=== PATIENT | female | born 1945 | race Caucasian/White ===

== ENCOUNTER 2017-01-12 13:38 | Outpatient (CLI) | payer MEDICARE, OTHER | END 2017-01-12 13:39 | disposition home or self-care (01) | DX: K51.50 Left sided colitis without complications (principal) ==

== ENCOUNTER 2017-05-24 11:25 | Outpatient (CLI) | payer MEDICARE, OTHER ==
[2017-05-24 19:39] LABS: BASOPHILS # (AUTO) 0.1 10^3/uL (0.0-0.1); BASOPHILS % (AUTO) 0.7 %; EOSINOPHILS # (AUTO) 0.3 10^3/uL (0.0-0.7); EOSINOPHILS % (AUTO) 2.8 %; HCT - HEMATOCRIT 41.5 % (37.0-47.0); HGB - HEMOGLOBIN 13.7 g/dL (12.0-16.0); LYMPHOCYTES # (AUTO) 1.4 10^3/uL (1.5-3.5); LYMPHOCYTES % (AUTO) 14.2 %; MEAN CORPUSCULAR HEMOGLOBIN 31.7 pg (27.0-31.0); MEAN CORPUSCULAR VOLUME 96.2 fL (81.0-99.0); MEAN PLATELET VOLUME 8.1 fL (7.9-10.8); MONOCYTES # (AUTO) 0.5 10^3/uL (0.0-1.0); MONOCYTES % (AUTO) 5.2 %; NEUTROPHILS # (AUTO) 7.7 10^3/uL (1.5-6.6); NEUTROPHILS % (AUTO) 77.1 %; NUCLEATED RED BLOOD CELLS AUTO 0.1 /100WBC; RED BLOOD COUNT 4.31 10^6/uL (4.20-5.40); RED CELL DISTRIBUTION WIDTH 15.2 % (12.0-15.0)
[2017-05-24 20:15] LABS: BILIRUBIN,DIRECT 0.1 mg/dL (0.1-0.5); BILIRUBIN,TOTAL 0.4 mg/dL (0.2-1.0); CREATININE 0.6 mg/dL (0.4-1.0); TOTAL PROTEIN 7.1 g/dL (6.7-8.2)
== END 2017-05-24 11:26 ==
LOC: LAB.WCP 11:25
PROVIDERS: ATTEND Internal Medicine Gastroenterology
DX: K51.50 Left sided colitis without complications (principal)
CPT/HCPCS: 36415; 80076; 82565; 84520; 85025

== ENCOUNTER 2017-11-18 08:00 | Outpatient (CLI) | payer MEDICARE, OTHER ==
[2017-11-18 18:42] LABS: BASOPHILS # (AUTO) 0.1 10^3/uL (0.0-0.1); BASOPHILS % (AUTO) 1.1 %; EOSINOPHILS # (AUTO) 0.3 10^3/uL (0.0-0.7); EOSINOPHILS % (AUTO) 2.6 %; LYMPHOCYTES # (AUTO) 1.5 10^3/uL (1.5-3.5); LYMPHOCYTES % (AUTO) 14.7 %; MEAN CORPUSCULAR HEMOGLOBIN 30.8 pg (27.0-31.0); MEAN CORPUSCULAR VOLUME 93.4 fL (81.0-99.0); MEAN PLATELET VOLUME 8.3 fL (7.9-10.8); MONOCYTES # (AUTO) 0.5 10^3/uL (0.0-1.0); MONOCYTES % (AUTO) 5.3 %; NEUTROPHILS # (AUTO) 7.9 10^3/uL (1.5-6.6); NEUTROPHILS % (AUTO) 76.3 %; PLT - PLATELET COUNT 306 10^3/uL (130-450); RED BLOOD COUNT 4.53 10^6/uL (4.20-5.40); WHITE BLOOD COUNT 10.4 x10^3/uL (4.8-10.8)
[2017-11-18 18:58] LABS: ALBUMIN 4.2 g/dL (3.2-5.5); ALKALINE PHOSPHATASE 75 IU/L (42-121); ALT ALANINE AMINOTRANSFERASE 14 IU/L (10-60); AST ASPARTATE AMINOTRANSFERASE 20 IU/L (10-42); BILIRUBIN,TOTAL < 0.2 mg/dL (0.2-1.0); BUN - BLOOD UREA NITROGEN 17 mg/dL (6-20); CREATININE 0.7 mg/dL (0.4-1.0); GFR - MDRD 82 (>89); TOTAL PROTEIN 7.2 g/dL (6.7-8.2)
[2017-11-18 19:38] LABS: BILIRUBIN,DIRECT < 0.1 mg/dL (0.1-0.5)
== END 2017-11-18 23:59 | disposition home or self-care (01) ==
LOC: LAB.WCP 08:00
PROVIDERS: ATTEND Internal Medicine Gastroenterology
DX: K51.50 Left sided colitis without complications (principal)
CPT/HCPCS: 36415; 80076; 82565; 84520; 85025

== ENCOUNTER 2018-05-04 14:01 | Outpatient (CLI) | payer MEDICARE, OTHER ==
[2018-05-04 18:49] LABS: BASOPHILS # (AUTO) 0.1 10^3/uL (0.0-0.1); BASOPHILS % (AUTO) 0.8 %; EOSINOPHILS # (AUTO) 0.3 10^3/uL (0.0-0.7); EOSINOPHILS % (AUTO) 2.7 %; HGB - HEMOGLOBIN 13.7 g/dL (12.0-16.0); LYMPHOCYTES # (AUTO) 1.5 10^3/uL (1.5-3.5); LYMPHOCYTES % (AUTO) 16.1 %; MEAN CORPUSCULAR HEMOGLOBIN 31.3 pg (27.0-31.0); MEAN CORPUSCULAR HGB CONC 33.2 g/dL (32.0-36.0); MEAN CORPUSCULAR VOLUME 94.3 fL (81.0-99.0); MEAN PLATELET VOLUME 7.9 fL (7.9-10.8); MONOCYTES # (AUTO) 0.4 10^3/uL (0.0-1.0); MONOCYTES % (AUTO) 3.9 %; NEUTROPHILS # (AUTO) 7.1 10^3/uL (1.5-6.6); NEUTROPHILS % (AUTO) 76.5 %; PLT - PLATELET COUNT 298 10^3/uL (130-450); RED BLOOD COUNT 4.36 10^6/uL (4.20-5.40); RED CELL DISTRIBUTION WIDTH 15.7 % (12.0-15.0); WHITE BLOOD COUNT 9.2 x10^3/uL (4.8-10.8)
[2018-05-04 19:15] LABS: ALBUMIN 3.7 g/dL (3.2-5.5); BILIRUBIN,DIRECT 0.1 mg/dL (0.1-0.5); BILIRUBIN,TOTAL 0.5 mg/dL (0.2-1.0); CREATININE 0.8 mg/dL (0.4-1.0); TOTAL PROTEIN 6.9 g/dL (6.7-8.2)
== END 2018-05-04 14:02 | disposition home or self-care (01) ==
LOC: LAB.WCP 14:01
PROVIDERS: ATTEND Internal Medicine Gastroenterology
DX: K51.50 Left sided colitis without complications (principal)
CPT/HCPCS: 36415; 80076; 82565; 84520; 85025

== ENCOUNTER 2019-02-17 10:18 | Emergency (ER) | payer MEDICARE, OTHER ==
[2019-02-17 10:26] VITALS: BP 175/82
[2019-02-17 10:58] LABS: BILIRUBIN,URINE NEGATIVE (NEGATIVE); GLUCOSE, URINE (UA) NEGATIVE (NEGATIVE); KETONES,URINE (UA) NEGATIVE (NEGATIVE); LEUKOCYTE ESTERASE, URINE NEGATIVE (NEGATIVE); NITRITE,URINE NEGATIVE (NEGATIVE); OCCULT BLOOD,URINE SMALL (NEGATIVE); PROTEIN,URINE NEGATIVE (NEGATIVE); UROBILINOGEN,URINE 0.2 (NORMAL) E.U./dL (NORMAL)
[2019-02-17 10:59] LABS: CLARITY,URINE CLEAR (CLEAR)
[2019-02-17 11:10] LABS: RBC,URINE 0-5 /HPF (0-5); SQUAMOUS EPITHELIAL CELL,UR FEW Squamous (<= Few)
[2019-02-17 11:11] LABS: BACTERIA,URINE Few /HPF (None Seen)
[2019-02-17 11:20] LABS: BASOPHILS # (AUTO) 0.1 10^3/uL (0.0-0.1); EOSINOPHILS # (AUTO) 0.2 10^3/uL (0.0-0.7); EOSINOPHILS % (AUTO) 1.9 %; HGB - HEMOGLOBIN 13.9 g/dL (12.0-16.0); LYMPHOCYTES # (AUTO) 0.7 10^3/uL (1.5-3.5); LYMPHOCYTES % (AUTO) 8.5 %; MEAN CORPUSCULAR HEMOGLOBIN 30.7 pg (27.0-31.0); MEAN CORPUSCULAR HGB CONC 33.4 g/dL (32.0-36.0); MEAN CORPUSCULAR VOLUME 92.2 fL (81.0-99.0); MEAN PLATELET VOLUME 7.4 fL (7.9-10.8); MONOCYTES # (AUTO) 0.4 10^3/uL (0.0-1.0); MONOCYTES % (AUTO) 5.2 %; NEUTROPHILS # (AUTO) 6.7 10^3/uL (1.5-6.6); NEUTROPHILS % (AUTO) 83.4 %; PLT - PLATELET COUNT 278 10^3/uL (130-450); RED BLOOD COUNT 4.54 10^6/uL (4.20-5.40); RED CELL DISTRIBUTION WIDTH 14.2 % (12.0-15.0)
[2019-02-17 11:31] LABS: ALBUMIN 3.9 g/dL (3.2-5.5); ALBUMIN/GLOBULIN RATIO 1.1 (1.0-2.2); BILIRUBIN,TOTAL 0.7 mg/dL (0.2-1.0); CALCIUM 9.3 mg/dL (8.5-10.3); CREATININE 0.7 mg/dL (0.4-1.0); TOTAL PROTEIN 7.4 g/dL (6.7-8.2)
--- NOTE | 2019-02-17 12:30 | ED Physician Documentation ---
History of Present Illness - Stated complaint Stated Complaint: DIZZY/NAUSEA - Chief complaint Chief Complaint: Cardiac - History obtained from History obtained from: Patient - History of Present Illness Timing: Today - Additonal information Additional information: 74-year-old female who has had a tube placed in her left ear for eustachian tube dysfunction has developed acute dizziness associated with head movement today. She has had waves of dizziness that are associated with some nausea. She has not had these symptoms previously. She does not otherwise feel ill. She reports that she had some hearing loss and fullness in the left ear and this did not improve with courses of antibiotic in about 5 months ago she had a tube placed in that left ear she subsequently had improvement in her hearing and symptoms resolved. Review of Systems Constitutional: denies: Fever, Chills, Myalgias Eyes: denies: Decreased vision Ears: denies: Ear pain Nose: denies: Rhinorrhea / runny nose, Congestion Throat: denies: Sore throat Cardiac: denies: Chest pain / pressure, Palpitations Respiratory: denies: Dyspnea, Cough GI: reports: Nausea. denies: Abdominal Pain, Vomiting : denies: Dysuria, Frequency Skin: denies: Rash Musculoskeletal: reports: Other (dizziness with associated nausea.). denies: Neck pain, Back pain, Extremity pain PD PAST MEDICAL HISTORY - Past Medical History Cardiovascular: None Respiratory: None Endocrine/Autoimmune: None GI: GERD, Ulcerative colitis PAPER TUBE GRADER: None : None HEENT: None Psych: None Musculoskeletal: None Derm: None - Past Surgical History Past Surgical History: Yes General: Cholecystectomy, Appendectomy Ortho: ACL reconstruction, Spine surgery /PAPER TUBE GRADER: Hysterectomy HEENT: Tonsil/Adenoidectomy - Present Medications Home Medications: Ambulatory Orders Medication Instructions Recorded Confirmed Desloratadine [Clarinex] 2.5 mg PO 02/02/13 09/20/15 Esomeprazole Magnesium [Nexium] 02/02/13 09/20/15 Mesalamine [Lialda] 1.2 gm PO 02/02/13 09/20/15 Asiathioprine 09/20/15 09/20/15 Meclizine [Antivert] 25 mg PO Q6H PRN #20 tablet 02/17/19 Montelukast [Singulair] 02/17/19 02/17/19 - Allergies Allergies/Adverse Reactions: Allergies Allergy/AdvReac Type Severity Reaction Status Date / Time codeine Allergy Nausea Verified 02/17/19 10:26 morphine AdvReac Severe Emesis Verified 02/17/19 10:26 - Social History Does the pt smoke?: No Smoking Status: Never smoker Does the pt drink ETOH?: Yes Does the pt have substance abuse?: No - Immunizations Immunizations are current?: Yes - POLST Patient has POLST: No PD ED PE NORMAL - Vitals Vital signs reviewed: Yes (hypertensive ) - General General: Alert and oriented X 3, No acute distress, Well developed/nourished - HEENT HEENT: Atraumatic, PERRL, EOMI, Other (The TM's are without inflamation. The tube is sideways in the canal and there is no inflamation of the TM on the left. ) - Neck Neck: Supple, no meningeal sign, No bony TTP - Cardiac Cardiac: RRR, No murmur - Respiratory Respiratory: No respiratory distress, Clear bilaterally - Abdomen Abdomen: Soft, Non tender - Back Back: No CVA TTP, No spinal TTP - Derm Derm: Normal color, Warm and dry, No rash - Extremities Extremities: No deformity, No edema, No calf tenderness / cord - Neuro Neuro: Alert and oriented X 3, blood bank supervisor 2-12 intact, No motor deficit, No sensory deficit, Normal speech Eye Opening: Spontaneous Motor: Obeys Commands Verbal: Oriented GCS Score: 15 - Psych Psych: Normal mood, Normal affect Results - Vitals Vitals: Vital Signs - 24 hr 02/17/19 10:23 Temperature 36.8 C Heart Rate 70 Respiratory 18 Rate Blood Pressure 175/82 H O2 Saturation 97 Oxygen O2 Source Room air - Labs Labs: Laboratory Tests 02/17/19 02/17/19 02/17/19 10:35 11:15 11:15 WBC 8.0 RBC 4.54 Hgb 13.9 Hct 41.8 MCV 92.2 MCH 30.7 MCHC 33.4 RDW 14.2 Plt Count 278 MPV 7.4 L Neut # (Auto) 6.7 H Lymph # (Auto) 0.7 L [place] # (Auto) 0.4 Eos # (Auto) 0.2 Baso # (Auto) 0.1 Absolute Nucleated RBC 0.00 Nucleated RBC % 0.1 Sodium 138 Potassium 4.3 Chloride 102 Carbon Dioxide 24 Anion Gap 12.0 BUN 18 Creatinine 0.7 Estimated GFR (MDRD) 81 L Glucose 139 H Calcium 9.3 Total Bilirubin 0.7 AST 18 ALT 15 Alkaline Phosphatase 74 Total Protein 7.4 Albumin 3.9 Globulin 3.5 Albumin/Globulin Ratio 1.1 Lipase 24 Urine Color LIGHT YELLOW Urine Clarity CLEAR Urine pH 7.0 Ur Specific [place] <=1.005 Urine Protein NEGATIVE Urine Glucose (UA) NEGATIVE Urine Ketones NEGATIVE Urine Occult Blood SMALL H Urine Nitrite NEGATIVE Urine Bilirubin NEGATIVE Urine Urobilinogen 0.2 (NORMAL) Ur Leukocyte Esterase NEGATIVE Urine RBC 0-5 Urine WBC 0-3 Ur Squamous Epith Cells FEW Squamous Urine Bacteria Few Ur Microscopic Review INDICATED Urine Culture Comments NOT INDICATED PD MEDICAL DECISION MAKING - ED course Complexity details: considered differential, d/w patient ED course: 74-year-old female with acute dizziness appears to have some vertigo and she does not get improvement with an Terry maneuver performed at the bedside. She is administered meclizine and I will administer modified Terry maneuver instructions to the patient. Departure - Departure Disposition: 01 Home, Self Care Clinical Impression: Acute labyrinthitis Qualifiers: Laterality: left Qualified Code(s): H83.02 - Labyrinthitis, left ear Condition: Stable Instructions: ED Labyrinthitis Follow-Up: Yulia Bear PA-C [Primary Care Provider] - Prescriptions: Meclizine [Antivert] 25 mg PO Q6H PRN #20 tablet PRN Reason: Dizziness
[2019-02-17] MEDS ORDERED: MECLIZINE 12.5 MG TABLET PO STA (12:43)
== END 2019-02-17 12:58 | disposition home or self-care (01) ==
LOC: ED 10:18
DX: H83.02 Labyrinthitis, left ear (principal)
CPT/HCPCS: 36415; 80053; 81001; 83690; 85025; 93005; 99283; A9270; 81003; 87086

== ENCOUNTER 2019-08-03 08:00 | Outpatient (CLI) | payer MEDICARE, OTHER ==
[2019-08-03 12:57] LABS: BASOPHILS # (AUTO) 0.1 10^3/uL (0.0-0.1); BASOPHILS % (AUTO) 0.8 %; EOSINOPHILS # (AUTO) 0.3 10^3/uL (0.0-0.7); EOSINOPHILS % (AUTO) 2.8 %; HGB - HEMOGLOBIN 14.1 g/dL (12.0-16.0); LYMPHOCYTES # (AUTO) 1.3 10^3/uL (1.5-3.5); LYMPHOCYTES % (AUTO) 13.3 %; MEAN CORPUSCULAR HEMOGLOBIN 31.2 pg (27.0-31.0); MEAN CORPUSCULAR HGB CONC 32.5 g/dL (32.0-36.0); MEAN PLATELET VOLUME 9.9 fL (7.9-10.8); MONOCYTES # (AUTO) 0.6 10^3/uL (0.0-1.0); MONOCYTES % (AUTO) 6.2 %; NEUTROPHILS # (AUTO) 7.3 10^3/uL (1.5-6.6); PLT - PLATELET COUNT 341 10^3/uL (130-450); RED BLOOD COUNT 4.52 10^6/uL (4.20-5.40); RED CELL DISTRIBUTION WIDTH 13.9 % (12.0-15.0); WHITE BLOOD COUNT 9.6 x10^3/uL (4.8-10.8)
[2019-08-03 13:11] LABS: ALBUMIN 3.9 g/dL (3.2-5.5); ALBUMIN/GLOBULIN RATIO 1.1 (1.0-2.2); BILIRUBIN,TOTAL 0.6 mg/dL (0.2-1.0); CREATININE 0.7 mg/dL (0.4-1.0); TOTAL PROTEIN 7.3 g/dL (6.7-8.2)
== END 2019-08-03 23:59 | disposition home or self-care (01) ==
LOC: LAB.WCP 08:00
PROVIDERS: ATTEND Internal Medicine Gastroenterology
DX: K51.50 Left sided colitis without complications (principal)
CPT/HCPCS: 36415; 80053; 85025

== ENCOUNTER 2021-11-22 08:00 | Outpatient (CLI) | payer MEDICARE, OTHER | END 2021-11-22 23:59 | LOC: LAB.N 08:00 | PROVIDERS: ATTEND Physician Assistant Medical | DX: N30.00 Acute cystitis without hematuria (principal) | CPT/HCPCS: 87086; 87181 ==

== ENCOUNTER 2021-11-29 08:00 | Outpatient (CLI) | payer MEDICARE, OTHER | END 2021-11-29 23:59 | disposition home or self-care (01) | LOC: LAB.N 08:00 | PROVIDERS: ATTEND Nurse Practitioner | DX: N39.0 Urinary tract infection, site not specified (principal) | CPT/HCPCS: 87086 ==

== ENCOUNTER 2022-09-12 08:00 | Outpatient (CLI) | payer MEDICARE, OTHER | END 2022-09-12 23:59 | disposition home or self-care (01) | LOC: LAB.N 08:00 | PROVIDERS: ATTEND Registered Nurse | DX: N39.0 Urinary tract infection, site not specified (principal) | CPT/HCPCS: 87086; 87181 ==

== ENCOUNTER 2022-10-20 19:43 | Outpatient (CLI) | payer MEDICARE, OTHER | END 2022-10-20 19:44 | disposition home or self-care (01) | LOC: SC 19:43 | PROVIDERS: ATTEND Nurse Practitioner Family | DX: I49.9 Cardiac arrhythmia, unspecified (principal); I25.10 Atherosclerotic heart disease of native coronary artery without angina pectoris; E11.9 Type 2 diabetes mellitus without complications; I10 Essential (primary) hypertension; G47.33 Obstructive sleep apnea (adult) (pediatric); G47.61 Periodic limb movement disorder; E66.9 Obesity, unspecified; Z68.39 Body mass index [BMI] 39.0-39.9, adult | CPT/HCPCS: 95810 ==

== ENCOUNTER 2022-10-30 10:47 | Outpatient (CLI) | payer MEDICARE, OTHER ==
[2022-10-30 11:23] VITALS: BP 112/68
--- NOTE | 2022-10-30 11:23 | SLEEP CARE CONSULTATION ---
Information from patient questionnaire entered by Corazon Mejias. I have reviewed and concur with the information entered by Corazon Mejias. This document represents the service I personally performed and the decisions made by , Jami Vu ARNP. History of Present Illness Service Date and Time: 10/30/2022 1047 Accompanied by: Spouse Initial [place] Sleepiness Scale score: 14 (09/29/22) Current [place] Sleepiness Scale score: 15 (10/30/22) Additional HPI information: LINH BIRMINGHAM returns for follow up with spouse and results of the recently performed polysomnography. I explained the pathophysiology behind obstructive sleep apnea. We then spent quite a bit of time discussing different treatment options. For mild obstructive sleep apnea, surgery and oral appliance are alternatives to nasal CPAP therapy but in moderate or severe cases, nasal CPAP is the most effective and reliable treatment. Because apnea is primarily in supine position, then positional management therapy could be effective. Methods discussed such as positioning with pillows to prevent supine sleep. I reviewed the impact of weight changes on sleep apnea and strongly recommended losing weight. After some discussion, the patient opted to go with the nasal CPAP therapy. Nasal autoCPAP set at 5-20 cmH20 will be ordered with rationale explained. A manual titration study will be ordered if unable to find optimal pressure with office adjustments. I explained how CPAP machine works and what to expect when using the machine. Using CPAP every night in order to get used to it was emphasized. Patient advised to put CPAP mask on before getting into bed so as not to fall asleep without CPAP. To assist acclimation to CPAP use, it could also be used for a short time during day while reading or watching TV. The patient was instructed to call the CPAP supplier to discuss any mechanical problem that may occur. If the mask given is uncomfortable or is difficult to keep on through the night even with adjustment, contact the CPAP supplier as many will replace with another mask style if notified before 30 days. If snoring or perceives is not getting enough air or too much air from the machine, notify this office. Patient does not drink alcohol. Patient was cautioned about risks of drowsy driving until sleepiness symptoms resolve. Patient denies drowsy driving. Sleep Study - Results Type of Sleep Study: Polysomnography (COMPLETED 10/20/22) Prior sleep studies: No Polysomnography/Home Sleep Study results: IMPRESSION: The quality of the study is good. The patient had poor sleep efficiency due to a prolonged awakening in the middle of the night. The sleep architecture was abnormal for sleep fragmentation and reduced amount of time spent in REM and slow wave sleep (N3). Respiratory monitoring showed severe obstructive sleep apnea-hypopnea (AHI = 52.9) associated with frequent arousals, oxyhemoglobin desaturation and moderate hypoxia (goran oxygen saturation of 76%). Baseline oxygen saturation was normal. The patient did not sleep supine during this study (supine AHI = 0; non-supine = 52.85). Snore was light to moderate in intensity. There was mild periodic leg movement of sleep not contributing to the sleep fragmentation. Cardiac rhythm was normal sinus rhythm without significant arrhythmia. No abnormal behavior (parasomnia) observed during the night. Allergies and Home Medications Drug allergies reviewed: Yes (codeine, morphine) Home medication list reviewed: Yes (added Jardiance) Review of Systems Review of systems same as previous: Yes (no changes) Physical Exam Vital signs obtained and entered by: CORAZON Haque MA Blood Pressure: 112/68 (LEFT ARM) Cuff size: long Heart Rate: 69 O2 Saturation: 97 Height: 5 ft 7 in Weight: 253 lb 4.8 oz Body Mass Index: 39.6 BMI Classification: Obese Impression and Plan 1. Obstructive Sleep Apnea-Hypopnea Syndrome, severe, with lowest oxygen saturation of 76%. Obviously this is the cause of the patients symptoms of unrefreshed sleep, and excessive daytime sleepiness. Positive pressure therapy could benefit cardiac disease (CHF), diabetes, arrhythmia (Afib) and asthma. As mentioned above, the patient will be started on nasal autoCPAP therapy with pressure set at 5-20 cmH2O. A manual titration study will be completed if unable to find optimal treatment pressure with office adjustments. Compliance guidelines also reviewed. A copy of compliance guidelines will be given for reference at check out. 2. Hypoxemia, moderate, with a goran oxygen saturation of 76% and 74.5 minutes spent under 90%. Her baseline oxygen saturation was normal with an average oxygen saturation of 91%. 3. Periodic limb movement, mild, that did not fragment patients sleep. Periodic limb movement of sleep (PLMS) is characterized by episodes of repetitive limb movements that occur during sleep and usually involve the lower limbs. The etiology is unknown. Caffeine can aggravate PLMS and should be avoided. Sleep hygiene methods can also improve sleep as well as lifestyle changes such as regular exercise. Patient was advised that no treatment is needed at this time. If symptoms increase, then further evaluation is indicated. * Nasal auto CPAP therapy, pressure at 5-20 cm H2O. * Attempt to lose weight. * Avoid supine sleep until using CPAP. * The patient is again cautioned about driving until sleepiness completely resolves. * Return one month after CPAP obtained. I will assess response to therapy and compliance at that time. Counseling Topics: Weight loss health impact Visit Type: In Office Other Participants: Spouse/Significant Other Time Spent with Patient (minutes): 21 Provider Statement: I spent 100% of the Face to Face Visit with the patient with greater than 50% spent counseling the patient and coordination of care.
== END 2022-10-30 10:48 | disposition home or self-care (01) ==
LOC: SC 10:47
PROVIDERS: ATTEND Nurse Practitioner Family
DX: G47.33 Obstructive sleep apnea (adult) (pediatric) (principal); E66.9 Obesity, unspecified; G47.61 Periodic limb movement disorder; Z68.39 Body mass index [BMI] 39.0-39.9, adult
CPT/HCPCS: 99213; G0463; 99212

== ENCOUNTER 2022-12-16 09:37 | Outpatient (CLI) | payer MEDICARE, OTHER ==
[2022-12-16 10:10] VITALS: BP 118/62
--- NOTE | 2022-12-16 10:10 | SLEEP CARE CONSULTATION ---
Information from patient questionnaire entered by Corazon Mejias. I have reviewed and concur with the information entered by Corazon Mejias. This document represents the service I personally performed and the decisions made by , Jami Vu ARNP. History of Present Illness Service Date and Time: 12/16/2022 0937 Previous diagnosis: Severe, Obstructive Sleep Apnea-Hypopnea Syndrome AHI: 52.9 (in 2022) Reason for follow up: first compliance Accompanied by: Spouse Equipment type: CPAP (RESMED Airsense 11; s/u 11/04/2022) Equipment obtained from: Other ([facility]; getting supplies) Mask style: Full face (Matt full) Backup mask available: Yes (will keep old mask when replaced) Last cushion change: 3 weeks Prior sleep studies: No Type of Sleep Study: Polysomnography (COMPLETED 10/20/22) HPI additional information: LINH BIRMINGHAM was diagnosed to have severe, AHI 52.9, obstructive sleep apnea- hypopnea syndrome and returned with spouse today for CPAP therapy first compliance follow-up. Sleep Study - Results Type of Sleep Study: Polysomnography (COMPLETED 10/20/22) Prior sleep studies: No CPAP Compliance Data - Data Reviewed with Patient Average duration of nightly device use: 4 HRS 59 MINS Compliance rate %: 70 (11/12/22-12/11/22; 26/30 days used; 80% in last 30 days) Current pressure setting (cmH2O): 5-20 (median 9.5, avg 10.9, max 11.5) Average residual AHI: 2.9 Central apnea: 0.8 Obstructive apnea: 0.3 Hypopnea: 1.6 Average large leak: 7.8 lpm Subjective Missed days of use due to: reports: mask issues Patient concerns: reports: dry mouth, nose, throat (dry mouth; hx of chronic dry). denies: aerophagia, mask discomfort, air blowing in eyes, mask leak noise, condensation in mask/hose, nasal congestion (has allergies), epistaxis Observed to snore while using device: No Current pressure setting perceived as: comfortable On therapy, patient: reports: sleeping better, awakening more refreshed, being more awake and alert during the day, more rested overall. denies: drowsiness while driving Initial [place] Sleepiness Scale score: 14 (09/29/22) Current [place] Sleepiness Scale score: 9 (12/16/22) Allergies and Home Medications Known drug allergies: Yes (as listed) Drug allergies reviewed: Yes Home medication list reviewed: Yes (no changes) Allergy and home medication list: Allergies codeine Allergy (Verified 12/15/22 14:10) Nausea morphine Adverse Reaction (Severe, Verified 12/15/22 14:10) Emesis Review of Systems Review of systems same as previous: Yes (no changes) Physical Exam Vital signs obtained and entered by: CORAZON Haque MA Blood Pressure: 118/62 (LEFT ARM) Cuff size: long Heart Rate: 66 O2 Saturation: 95 Height: 5 ft 7 in Weight: 256 lb 6.4 oz Body Mass Index: 40.1 BMI Classification: Morbidly Obese Impression and Plan 1. Obstructive Sleep Apnea-Hypopnea Syndrome, severe, with good treatment compliance and good apnea control. On CPAP therapy, the patient has better sleep quality and is more rested overall. She could not tolerate the nasal mask she tried first because her mouth would come open at night. She was fitted for and is now using a full face mask, Matt, with good results. She has had some dry mouth but states this is nothing new and does have a mouth moisturizer spray that she uses as recommended by her dentist. She states her naps have reduced in the last week and she has had more energy during the day since being able to wear her mask nightly for 5-6 hours nightly. She feels the pressure is comfortable. The patients pressure will be changed to autoCPAP 10-12 cmH20 to reflect pressures being used. Patient advised to contact me if pressure change is uncomfortable so that it can be adjusted. Goals for apnea control discussed. Patient's apnea severity and rationale for treatment to reduce apnea, improve sleep quality and reduce cardiovascular and cerebrovascular events was reviewed. I also reviewed the benefit of consistent device use of CPAP for cardiac disease (CHF), arrhythmia (Afib), diabetes, and asthma. 2. Obesity, unspecified. Currently patients BMI is 40.1. She has been able to walk daily for the last week. Obesity increases the risk of apnea, CPAP pressure requirements and overall health risks especially cardiovascular and diabetes. Thus patient is advised to lose weight. * Change auto CPAP pressure to 10-12 cmH2O * Notify me if snoring with mask or feeling that the pressure is too much or too little * Attempt to lose weight * Call this office if any problems using CPAP * Return for follow up in 1-2 months, or sooner if concerns arise Counseling Topics: Spare mask, Weight loss health impact Visit Type: In Office Time Spent with Patient (minutes): 23 Provider Statement: I spent 100% of the Face to Face Visit with the patient with greater than 50% spent counseling the patient and coordination of care.
== END 2022-12-16 09:38 | disposition home or self-care (01) ==
LOC: SC 09:37
PROVIDERS: ATTEND Nurse Practitioner Family
DX: G47.33 Obstructive sleep apnea (adult) (pediatric) (principal); E66.01 Morbid (severe) obesity due to excess calories; Z68.41 Body mass index [BMI] 40.0-44.9, adult
CPT/HCPCS: 99213; G0463; 99212

== ENCOUNTER 2023-02-18 09:26 | Outpatient (CLI) | payer MEDICARE, OTHER ==
--- NOTE | 2023-02-18 09:52 | Sleep Patient Instructions ---
Sleep Center Visit Summary - Patient Visit Information Reason for Visit: Two month followup for CPAP therapy - Patient Instructions Additional Instructions: You were here for follow up of CPAP therapy. You will be continued on CPAP therapy with pressure at 10-12 cmH2O. You should follow up with sleep care in 3 months. You may contact us sooner for any questions or concerns. - Clinic Information Contact: [facility] [address] [place] [address] [email or web address] T: [phone]
--- NOTE | 2023-02-18 09:56 | SLEEP CARE CONSULTATION ---
Information from patient questionnaire entered by Corazon Mejias. I have reviewed and concur with the information entered by Corazon Mejias. This document represents the service I personally performed and the decisions made by , Jami Vu ARNP. History of Present Illness Service Date and Time: 02/18/2023925 Previous diagnosis: Severe, Obstructive Sleep Apnea-Hypopnea Syndrome AHI: 52.9 (in 10/2022) Reason for follow up: other (2 MONTH F/U) Accompanied by: Spouse Equipment type: CPAP (ResMed Airsense 11, s/u [id number]) Equipment obtained from: Other ([facility]) Mask style: Full face (Matt Full) Backup mask available: No (will keep old mask when replaced) Last cushion change: 3 months Prior sleep studies: No Type of Sleep Study: Polysomnography (COMPLETED 10/20/22) HPI additional information: LINH BIRMINGHAM was diagnosed to have severe, AHI 52.9, obstructive sleep apnea- hypopnea syndrome and returned today for CPAP therapy two month follow-up. Sleep Study - Results Type of Sleep Study: Polysomnography (COMPLETED 10/20/22) Prior sleep studies: No CPAP Compliance Data - Data Reviewed with Patient Average duration of nightly device use: 4 HRS 58 MIN Compliance rate %: 75 (12/16/22-02/13/23; 60/60 days used) Current pressure setting (cmH2O): 10-12 (avg 11.7) Average residual AHI: 2.3 (RERA 0.6) Central apnea: 0.5 Obstructive apnea: 0 Hypopnea: 1.8 Subjective Patient concerns: reports: mask discomfort (was loose but she has adjusted it), dry mouth, nose, throat (dry mouth, has chronic issues with this and is to see her dentist). denies: aerophagia, air blowing in eyes, mask leak noise, condensation in mask/hose, nasal congestion, epistaxis Observed to snore while using device: No Current pressure setting perceived as: comfortable On therapy, patient: reports: sleeping better, awakening more refreshed, being more awake and alert during the day, more rested overall. denies: drowsiness while driving (doesn't drive) Initial [place] Sleepiness Scale score: 14 (09/29/22) Current [place] Sleepiness Scale score: 8 (02/18/23) Allergies and Home Medications Known drug allergies: Yes (codeine, morphine) Drug allergies reviewed: Yes Home medication list reviewed: Yes (no changes) Allergy and home medication list: Allergies codeine Allergy (Verified 02/17/23 10:02) Nausea morphine Adverse Reaction (Severe, Verified 02/17/23 10:02) Emesis Review of Systems Review of systems same as previous: No (cardioversion; angiogram) Physical Exam Vital signs obtained and entered by: CORAZON Haque MA Blood Pressure: 126/72 (LEFT ARM) Cuff size: long Heart Rate: 71 O2 Saturation: 95 Height: 5 ft 7 in Weight: 260 lb 12.8 oz Body Mass Index: 40.8 BMI Classification: Morbidly Obese Impression and Plan 1. Obstructive Sleep Apnea-Hypopnea Syndrome, severe, with good treatment compliance and good apnea control. On CPAP therapy, the patient has better sleep quality and is more rested overall. Patient has had some struggles in keeping the mask on but she is determined to adapt to wearing her CPAP. She is doing well with her compliance and has significant improvement of her sleep apnea. She does get dry mouth, her mouth will come open, but she states she has always had a problem with dry mouth. She has an appointment with her dentist later this month and will talk to them about an oral moisturizer that she has had in the past. Patient's apnea severity and rationale for treatment to reduce apnea, improve sleep quality and reduce cardiovascular and cerebrovascular events was reviewed. I also reviewed the benefit of consistent device use of CPAP for cardiac disease(CHF), arrhythmia(Afib), diabetes and asthma. 2. Obesity, unspecified. Currently patients BMI is 40.8. Obesity increases the risk of apnea, CPAP pressure requirements and overall health risks especially cardiovascular and diabetes. Thus patient is advised to lose weight. * Continue auto CPAP pressure at 10-12 cmH2O * Notify me if snoring with mask or feeling that the pressure is too much or too little * Attempt to lose weight * Call this office if any problems using CPAP * Return for follow up in 3 months, or sooner if concerns arise Counseling Topics: Spare mask, Weight loss health impact Visit Type: In Office Time Spent with Patient (minutes): 22 Provider Statement: I spent 100% of the Face to Face Visit with the patient with greater than 50% spent counseling the patient and coordination of care.
[2023-02-18 10:00] VITALS: BP 126/72
== END 2023-02-18 09:27 | disposition home or self-care (01) ==
LOC: SC 09:26
PROVIDERS: ATTEND Nurse Practitioner Family
DX: G47.33 Obstructive sleep apnea (adult) (pediatric) (principal); E66.01 Morbid (severe) obesity due to excess calories; Z68.41 Body mass index [BMI] 40.0-44.9, adult
CPT/HCPCS: 99213; G0463; 99212

== ENCOUNTER 2023-05-21 09:33 | Outpatient (CLI) | payer MEDICARE, OTHER ==
--- NOTE | 2023-05-21 10:13 | Sleep Patient Instructions ---
Sleep Center Visit Summary - Patient Visit Information Reason for Visit: THREE MONTH FOLLOWUP FOR PAP THERAPY - Patient Instructions Additional Instructions: You were here for follow up of CPAP therapy. You will be continued on CPAP therapy with pressure at 10-12 cmH2O. You should follow up with sleep care in 6 months. You may contact us sooner for any questions or concerns. - Clinic Information Contact: [facility] [address] [place] [address] [email or web address] T: [phone]
--- NOTE | 2023-05-21 10:19 | SLEEP CARE CONSULTATION ---
Information from patient questionnaire entered by Corazon Mejias. I have reviewed and concur with the information entered by Corazon Mejias. This document represents the service I personally performed and the decisions made by , Jami Vu ARNP. History of Present Illness Service Date and Time: 05/21/2023932 Previous diagnosis: Severe, Obstructive Sleep Apnea-Hypopnea Syndrome AHI: 52.9 (in 2022) Reason for follow up: three month (F/U) Equipment type: CPAP (RESMED Airsense 11, s/u 10/2022) Equipment obtained from: Other ([facility]; getting supplies) Mask style: Full face (Matt full, small/medium) Backup mask available: Yes (old mask) Last cushion change: 1 month Prior sleep studies: No Type of Sleep Study: Polysomnography (COMPLETED 10/20/22) HPI additional information: LINH BIRMINGHAM was diagnosed to have severe, AHI 50.9, obstructive sleep apnea- hypopnea syndrome and returned today for CPAP therapy three month follow-up. Sleep Study - Results Type of Sleep Study: Polysomnography (COMPLETED 10/20/22) Prior sleep studies: No CPAP Compliance Data - Data Reviewed with Patient Average duration of nightly device use: 5 HRS 19 MIN Compliance rate %: 73 (02/18/23-05/18/23; 89/90 days used) Current pressure setting (cmH2O): 10-12 Average residual AHI: 1.7 Central apnea: 0.1 Obstructive apnea: 0 Hypopnea: 1.5 Average large leak: 2.0 Subjective Missed days of use due to: reports: travel (camping) Patient concerns: reports: dry mouth, nose, throat. denies: aerophagia, mask discomfort, air blowing in eyes, mask leak noise, condensation in mask/hose, nasal congestion, epistaxis Observed to snore while using device: No Current pressure setting perceived as: comfortable On therapy, patient: reports: sleeping better, awakening more refreshed, being more awake and alert during the day, more rested overall. denies: drowsiness while driving Initial [place] Sleepiness Scale score: 14 (09/29/22) Current [place] Sleepiness Scale score: 6 (05/21/23) Allergies and Home Medications Known drug allergies: Yes (as listed) Drug allergies reviewed: Yes Home medication list reviewed: Yes (no changes) Allergy and home medication list: Allergies codeine Allergy (Verified 05/20/23 14:00) Nausea morphine Adverse Reaction (Severe, Verified 05/20/23 14:00) Emesis Review of Systems Review of systems same as previous: Yes (no changes) Physical Exam Vital signs obtained and entered by: CORAZON Haque MA Blood Pressure: 122/70 (LEFT ARM) Cuff size: long Heart Rate: 76 O2 Saturation: 94 Height: 5 ft 7 in Weight: 270 lb 12.8 oz Weight change since last visit: 5 lb gain Body Mass Index: 42.4 BMI Classification: Morbidly Obese Impression and Plan 1. Obstructive Sleep Apnea-Hypopnea Syndrome, severe, with good treatment compliance and good apnea control. On CPAP therapy, the patient has better sleep quality and is more rested overall. She has significant improvement of her sleep apnea and is satisfied with current CPAP therapy. She has had some dry mouth and she saw her dentist who suggested a mouth moisturizer that she is using with good results. Patient's apnea severity and rationale for treatment to reduce apnea, improve sleep quality and reduce cardiovascular and cerebrovascular events was reviewed. I also reviewed the benefit of consistent device use of CPAP for cardiac disease (CHF), arrhythmia (Afib), diabetes and asthma. 2. Obesity, unspecified. Currently patients BMI is 42.4. Obesity increases the risk of apnea, CPAP pressure requirements and overall health risks especially cardiovascular and diabetes. Thus patient is advised to continue to try to lose weight. * Continue auto CPAP pressure at 10-12 cmH2O * Notify me if snoring with mask or feeling that the pressure is too much or too little * Attempt to lose weight * Call this office if any problems using CPAP * Return for follow up in 6 months, or sooner if concerns arise Counseling Topics: Spare mask, Weight loss health impact Visit Type: In Office Time Spent with Patient (minutes): 16 Provider Statement: I spent 100% of the Face to Face Visit with the patient with greater than 50% spent counseling the patient and coordination of care.
[2023-05-21 10:22] VITALS: BP 122/70; O2SAT 94
== END 2023-05-21 09:34 | disposition home or self-care (01) ==
LOC: SC 09:33
PROVIDERS: ATTEND Nurse Practitioner Family
DX: G47.33 Obstructive sleep apnea (adult) (pediatric) (principal); E66.01 Morbid (severe) obesity due to excess calories; Z68.41 Body mass index [BMI] 40.0-44.9, adult
CPT/HCPCS: 99212; G0463

== ENCOUNTER 2023-12-22 10:46 | Outpatient (CLI) | payer MEDICARE, OTHER ==
--- NOTE | 2023-12-22 11:18 | Sleep Patient Instructions ---
Sleep Center Visit Summary - Patient Visit Information Reason for Visit: 6-month follow-up - Patient Instructions Additional Instructions: You were here for follow up of CPAP therapy. You will be continued on CPAP therapy with pressure at 10-12 cmH2O. You should follow up with sleep care in 12 months. You may contact us sooner for any questions or concerns. - Clinic Information Contact: [facility] [address] [place] [address] [email or web address] T: [phone]
--- NOTE | 2023-12-22 11:23 | SLEEP CARE CONSULTATION ---
Information from patient questionnaire entered by Corazon Mejias. I have reviewed and concur with the information entered by Corazon Mejias. This document represents the service I personally performed and the decisions made by , Jami Vu ARNP. History of Present Illness Service Date and Time: 12/22/2023 1046 Previous diagnosis: Severe, Obstructive Sleep Apnea-Hypopnea Syndrome AHI: 52.9 (in 2022) Reason for follow up: six month (F/U) Equipment type: CPAP (RESMED Airsense 11, s/u 10/2022) Equipment obtained from: Other ([facility]; getting supplies) Mask style: Full face (Matt full, small/medium) Backup mask available: Yes Last cushion change: 3 months Prior sleep studies: No Type of Sleep Study: Polysomnography (COMPLETED 10/20/22) HPI additional information: LINH B[place] was diagnosed to have severe, AHI 52.9, obstructive sleep apnea- hypopnea syndrome and returned today for CPAP therapy six month follow-up. Sleep Study - Results Type of Sleep Study: Polysomnography (COMPLETED 10/20/22) Prior sleep studies: No CPAP Compliance Data - Data Reviewed with Patient Average duration of nightly device use: 6 HRS 22 MINS Compliance rate %: 91 (-12/19/23; 180/180 days used) Current pressure setting (cmH2O): 10-12 Average residual AHI: 1.4 Central apnea: 0.3 Obstructive apnea: 0 Hypopnea: 1.1 Average large leak: 3.1 Subjective Patient concerns: denies: aerophagia, mask discomfort, air blowing in eyes, mask leak noise, condensation in mask/hose, nasal congestion, dry mouth, nose, throat, epistaxis Observed to snore while using device: No Current pressure setting perceived as: comfortable On therapy, patient: reports: sleeping better, awakening more refreshed, being more awake and alert during the day, more rested overall. denies: drowsiness while driving Initial [place] Sleepiness Scale score: 14 (09/29/22) Current [place] Sleepiness Scale score: 9 Allergies and Home Medications Known drug allergies: Yes (as listed) Drug allergies reviewed: Yes Home medication list reviewed: Yes (no changes) Allergy and home medication list: Allergies codeine Allergy (Verified 12/20/23 11:08) Nausea morphine Adverse Reaction (Severe, Verified 12/20/23 11:08) Emesis Review of Systems Review of systems same as previous: Yes (no changes) Physical Exam Vital signs obtained and entered by: JAMI BRITO Blood Pressure: 137/71 Cuff size: long (left arm) Heart Rate: 62 O2 Saturation: 94 Height: 5 ft 7 in Weight: 281 lb 9.6 oz Body Mass Index: 44.1 BMI Classification: Morbidly Obese Impression and Plan 1. Obstructive Sleep Apnea-Hypopnea Syndrome, severe, with good treatment compliance and good apnea control. On CPAP therapy, the patient has better sleep quality and is more rested overall. Patient has significant improvement of their sleep apnea and is satisfied with current CPAP therapy. Patient denies problems with oral dryness, nasal congestion, epistaxis, skin irritation or aerophagia. Patient's apnea severity and rationale for treatment to reduce apnea, improve sleep quality and reduce cardiovascular and cerebrovascular events was reviewed. I also reviewed the benefit of consistent device use of CPAP for cardiac disease (CHF), arrhythmia (Afib), diabetes, asthma. 2. Obesity, unspecified. Currently patients BMI is 44.1. Obesity increases the risk of apnea, CPAP pressure requirements and overall health risks especially cardiovascular and diabetes. Thus patient is advised to lose weight. * Continue auto CPAP pressure at 10-12 cmH2O * Update supply prescription * Notify me if snoring with mask or feeling that the pressure is too much or too little * Attempt to lose weight * Call this office if any problems using CPAP * Return for follow up in 1 year, or sooner if concerns arise Counseling Topics: Spare mask, Weight loss health impact Prescriptions: Device supplies Follow up with Sleep Care in: 1 year Visit Type: In Office Time Spent with Patient (minutes): 21 Provider Statement: I spent 100% of the Face to Face Visit with the patient with greater than 50% spent counseling the patient and coordination of care.
[2023-12-22 11:25] VITALS: BP 137/71; O2SAT 94
== END 2023-12-22 10:47 | disposition home or self-care (01) ==
LOC: SC 10:46
PROVIDERS: ATTEND Nurse Practitioner Family
DX: G47.33 Obstructive sleep apnea (adult) (pediatric) (principal); E66.01 Morbid (severe) obesity due to excess calories; Z68.41 Body mass index [BMI] 40.0-44.9, adult
CPT/HCPCS: 99213; G0463; 99212